=== PATIENT | male | born 1965 | race Caucasian/White ===

== ENCOUNTER 2022-04-11 09:41 | Emergency (ER) | payer BC, SELFPAY ==
[2022-04-11] VITALS (24 sets, daily range): BP systolic 135–178; BP diastolic 75–116; PULSE 68–92; RESP 18–20; TEMP 36.3–36.4; O2SAT 94–170; BMI 30.4
--- NOTE | 2022-04-11 10:21 | ED.GENADULT ---
HPI - General Adult General Chief complaint: Neuro Symptoms/Altered Deficit Stated complaint: Possible stroke Time Seen by Provider: 04/11/22 09:55 History of Present Illness HPI narrative: This 56-year-old male comes in reporting pain in his left hand and left foot. This started for 5 days ago but has intensified since then. This morning he had severe pain in these areas. He has a history of myelofibrosis and is taking hydroxyurea. This dosage was increased recently. He is following with a oncologist. He does not report any specific injury event. He was fishing this past weekend. He reports pain in the median nerve distribution of his left hand. He does not report any neck or back pain. He presented to clinic this morning with these symptoms and was sent here for further evaluation. The clinician thought there might have been a faint facial droop and stated to the patient that this may be a stroke. The patient does describe some brief episodes of vertigo over these past several days. These last just a few minutes but he does feel off balance at these times. Related Data Home Medications Medication Instructions Recorded Confirmed acetaminophen 500 mg tablet 1,500 mg PO Q6H PRN 04/11/22 04/11/22 (Tylenol Extra Strength) hydroxyurea 500 mg capsule 500 mg PO 04/11/22 04/11/22 Previous Rx's Medication Instructions Recorded apixaban 5 mg (74 tabs) tablets in See Rx Instructions PO .COMPLEX 04/11/22 a dose pack (Route4Me DVT-PE Treat #74 ea 30D Start) cyclobenzaprine 10 mg tablet 10 mg PO TID #15 tabs 04/11/22 ondansetron 4 mg disintegrating 4 mg PO Q6H #20 tabs 04/11/22 tablet oxycodone 5 mg capsule 5 mg PO Q4H PRN pain #30 caps 04/11/22 Allergies Allergy/AdvReac Type Severity Reaction Status Date / Time No Known Drug Allergies Allergy Verified 04/11/22 07:43 Review of Systems Status of ROS: Reports: 10 or more systems reviewed and unremarkable except as noted in History and below Narrative: Constitutional: No fevers, no weight gain or loss. Eyes: No discharge. No vision changes. HENT: No congestion, no sore throat, no ear pain. Cardiovascular: No chest pain, no palpitations. Respiratory: No shortness of breath, no wheezes, no cough. Gastrointestinal: No abdominal pain, no vomiting, no diarrhea. Genitourinary: No dysuria, no hematuria. Musculoskeletal: Normal range of motion. Left hand and left foot pain as described above. Skin: No rashes, no pruritis. Neurological: No weakness, sensory change, speech change. Brief episodes of vertigo lasting less than 5 minutes. Endo/Heme/Allergies: No bruising or bleeding. No polydipsia. Pysch: no suicidality, no anxiety, no insomnia. All other systems reviewed and are negative. [facility] Medical History (Updated 04/11/22 @ 14:47 by Yong Medeiros MD) Left hand pain Social History Smoking Status: Never smoker Do you use any of these nicotine containing products: None How often do you have a drink containing alcohol: monthly or less How many standard drinks containing alcohol do you have on a typical day: 1 or 2 How often do you have six or more drinks on one occasion: Never AUDIT-C Alcohol total score: 1 Non-prescribed substance use: denies use Exam Narrative: Exam Narrative: Constitutional: Well-developed, well-nourished, no acute distress. HEENT: Normocephalic, atraumatic. Neck: Normal range of motion. Nontender. Supple. Heart: Regular. No murmurs. Normal rate. Intact distal pulses. Lungs: Clear to auscultation. No chest discomfort. No wheezes, rhonchi, or rales. Abdomen: Normal bowel sounds. Nontender. No rebound tenderness. Genitalia: Deferred. Back: No midline tenderness. Normal range of motion. Extremities: Normal range of motion. No injury. Skin: Intact. No rash. No erythema or pallor. His left hand and left foot are warm to touch. The right hand and right foot are cool. There is no discoloration of his extremities. Neurologic: No altered sensation. No weakness. Alert and oriented. No facial asymmetry. Tongue is midline. [id number] is normal. No pronator drift. Heel to bassett is normal bilaterally. 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 Psychiatric: No suicidality. No anxiety or depression. No insomnia. Nursing notes and vitals signs are reviewed. Const: Vital Signs, click to edit/add: Vital Signs - 24 hr 04/11/22 09:46 04/11/22 09:45 04/11/22 10:00 Temperature 97.4 F L Pulse Rate Pulse Rate [Pulse Oximeter] 92 82 Respiratory Rate 18 20 20 Blood Pressure Blood Pressure [Ri ght Upper Arm] 170/116 H 170/116 H 178/110 H Pulse Oximetry 170 H 98 98 Oxygen Delivery Me thod Room Air Room Air 04/11/22 10:30 04/11/22 10:33 04/11/22 10:34 Temperature Pulse Rate 72 68 Pulse Rate [Pulse Oximeter] 75 Respiratory Rate 20 Blood Pressure 150/90 H Blood Pressure [Ri ght Upper Arm] 150/90 H Pulse Oximetry 98 99 99 Oxygen Delivery Me thod 04/11/22 11:00 04/11/22 11:02 04/11/22 11:30 Temperature Pulse Rate 77 68 68 Pulse Rate [Pulse Oximeter] Respiratory Rate Blood Pressure 147/94 H Blood Pressure [Ri ght Upper Arm] Pulse Oximetry 95 98 98 Oxygen Delivery Me thod 04/11/22 11:32 04/11/22 11:33 04/11/22 12:00 Temperature Pulse Rate 74 84 70 Pulse Rate [Pulse Oximeter] Respiratory Rate Blood Pressure 150/93 H Blood Pressure [Ri ght Upper Arm] Pulse Oximetry 97 99 98 Oxygen Delivery Me thod 04/11/22 12:02 04/11/22 13:16 04/11/22 13:32 Temperature Pulse Rate 70 Pulse Rate [Pulse Oximeter] Respiratory Rate Blood Pressure 147/89 H 135/75 136/83 Blood Pressure [Ri ght Upper Arm] Pulse Oximetry 99 Oxygen Delivery Me thod 04/11/22 14:02 04/11/22 14:06 04/11/22 15:29 Temperature 97.5 F L Pulse Rate 78 Pulse Rate [Pulse Oximeter] Respiratory Rate Blood Pressure 145/94 H Blood Pressure [Ri ght Upper Arm] Pulse Oximetry 98 Oxygen Delivery Me thod 04/11/22 14:30 04/11/22 14:32 04/11/22 15:00 Temperature Pulse Rate 81 74 84 Pulse Rate [Pulse Oximeter] Respiratory Rate Blood Pressure 146/86 H Blood Pressure [Ri ght Upper Arm] Pulse Oximetry 97 98 94 Oxygen Delivery Me thod 04/11/22 15:02 04/11/22 15:30 04/11/22 15:32 Temperature Pulse Rate 91 88 Pulse Rate [Pulse Oximeter] Respiratory Rate Blood Pressure 138/81 156/101 H Blood Pressure [Ri ght Upper Arm] Pulse Oximetry 94 97 96 Oxygen Delivery Me thod Course Vital Signs Vital signs: Initial Vital Signs Pulse Rhythm 04/11/22 09:45 Pulse Strength 3+ Normal 04/11/22 09:45 Respiratory Rate 20 04/11/22 09:45 Blood Pressure 170/116 H 04/11/22 09:45 Blood Pressure Mean 134 04/11/22 09:45 Pulse Oximetry 98 04/11/22 09:45 Oxygen Delivery Method 04/11/22 09:45 Vital Signs Respiratory Rate 20 04/11/22 09:45 Blood Pressure 170/116 H 04/11/22 09:45 Pulse Oximetry 98 04/11/22 09:45 Oxygen Delivery Method 04/11/22 09:45 Temperature 97.5 F L 04/11/22 15:29 Pulse Rate 88 04/11/22 15:32 Respiratory Rate 20 04/11/22 10:30 Blood Pressure 156/101 H 04/11/22 15:32 Pulse Oximetry 96 04/11/22 15:32 Oxygen Delivery Method 04/11/22 09:46 Medical Decision Making MDM Narrative Medical decision making narrative: This patient comes in reporting left hand and foot pain along with some brief episodes of vertigo. These symptoms began about 5 days ago. He has a myeloproliferative disorder and is taking hydroxyurea. I spoke with a oncologist on-call in this regard who recommended MRI of the brain to rule out TIA or cerebrovascular accident as he is more at risk for these to occur given his past medical history. An IV was established and labs returned with normal results essentially. His platelets are a bit elevated at 660. CT scan of the chest is negative for pulmonary embolism. An MRI of the brain does returned with some suspicion for punctate embolisms in the cerebellum. I spoke again with the patient's oncologist, Dr. Unger, who will see him in clinic. He did receive the 1st dose of Eliquis and a prescription for the starter pack. He received 3 different doses of Dilaudid 0.5 mg intravenously as he is having significant pain in his extremities on the left side. Prescriptions for oxycodone, Flexeril, and Zofran are provided. The patient is instructed to follow up soon with oncology clinic for further evaluation and treatment. Lab Data Labs: Lab Results 04/11/22 04/11/22 04/11/22 Range/Units 09:55 09:55 09:55 WBC 5.84 (4.50-11.00) K/uL RBC 4.88 (4.30-5.90) m/uL Hgb 15.9 (13.5-17.5) gm/dL Hct 46.9 (37.0-53.0) % MCV 96 (80-100) fL MCH 33 (26-34) pg MCHC 34 (32-36) gm/dL RDW Coeff of Libra 16.9 H (11.5-15.5) % Plt Count 622 H (140-440) K/uL Neut % (Auto) 62.8 (42.0-72.0) % Lymph % (Auto) 27.9 (20-44) % [place] % (Auto) 7.4 (0.0-11.0) % Eos % (Auto) 0.7 (0.0-7.0) % Baso % (Auto) 0.5 (0.0-3.0) % Neut # (Auto) 3.67 (1.7-7.0) K/uL Lymph # (Auto) 1.63 (0.90-2.90) K/uL [place] # (Auto) 0.40 (0.00-0.90) K/UL Eos # (Auto) 0.04 (0.00-0.50) K/uL Baso # (Auto) 0.03 (0.00-0.30) K/uL INR 0.99 (0.91-1.10) Sodium 138 (135-149) mmol/L Potassium 4.8 (3.6-5.1) mmol/L Chloride 106 (96-114) mmol/L Carbon Dioxide 25 (20-32) mmol/L BUN 15 (7-30) mg/dL Creatinine 1.0 (0.5-1.5) mg/dL Estimated Creat Clear 103.68 Estimated GFR 89 ml/min Glucose 102 (60-115) mg/dL Calcium 9.6 (8.4-10.6) mg/dL Total Bilirubin (0.1-1.5) mg/dL Direct Bilirubin (0.0-0.5) mg/dL AST (12-35) U/L ALT (4-50) U/L Alkaline Phosphatase (40-150) U/L C-Reactive Protein < 0.5 L (0.5-1.0) mg/dL Total Protein (6.0-8.3) g/dL Albumin (3.3-5.0) g/dL 04/11/22 Range/Units 09:55 WBC (4.50-11.00) K/uL RBC (4.30-5.90) m/uL Hgb (13.5-17.5) gm/dL Hct (37.0-53.0) % MCV (80-100) fL MCH (26-34) pg MCHC (32-36) gm/dL RDW Coeff of Libra (11.5-15.5) % Plt Count (140-440) K/uL Neut % (Auto) (42.0-72.0) % Lymph % (Auto) (20-44) % [place] % (Auto) (0.0-11.0) % Eos % (Auto) (0.0-7.0) % Baso % (Auto) (0.0-3.0) % Neut # (Auto) (1.7-7.0) K/uL Lymph # (Auto) (0.90-2.90) K/uL [place] # (Auto) (0.00-0.90) K/UL Eos # (Auto) (0.00-0.50) K/uL Baso # (Auto) (0.00-0.30) K/uL INR (0.91-1.10) Sodium (135-149) mmol/L Potassium (3.6-5.1) mmol/L Chloride (96-114) mmol/L Carbon Dioxide (20-32) mmol/L BUN (7-30) mg/dL Creatinine (0.5-1.5) mg/dL Estimated Creat Clear Estimated GFR ml/min Glucose (60-115) mg/dL Calcium (8.4-10.6) mg/dL Total Bilirubin 0.9 (0.1-1.5) mg/dL Direct Bilirubin 0.1 (0.0-0.5) mg/dL AST 39 H (12-35) U/L ALT 49 (4-50) U/L Alkaline Phosphatase 71 (40-150) U/L C-Reactive Protein (0.5-1.0) mg/dL Total Protein 7.6 (6.0-8.3) g/dL Albumin 5.0 (3.3-5.0) g/dL Imaging Data CT scan - chest: Radiologist's impression: No pulmonary embolism MRI - head: Radiologist's impression: 1. A few punctate acute infarcts are noted in the left cerebellar hemisphere, and there may be an additional single lesion in the left posterior temporal occipital cerebrum. No associated hemorrhage or mass effect at this time. 2. Examination otherwise unremarkable. Discharge Plan Discharge Clinical Impression: Myeloproliferative disorder, Acute CVA (cerebrovascular accident) Patient Disposition: Home w/ Parent or Adult Condition: Unchanged Additional Instructions: Take medication as prescribed. Follow up with Oncology Clinic. Call for appointment. Return if worsening. Prescriptions: New cyclobenzaprine 10 mg tablet 10 mg PO TID Qty: 15 0RF ondansetron 4 mg tablet,disintegrating 4 mg PO Q6H Qty: 20 0RF oxycodone 5 mg capsule 5 mg PO Q4H PRN (Reason: pain) Qty: 30 0RF Eliquis DVT-PE Treat 30D Start 5 mg (74 tabs) tablets,dose pack See Rx Instructions PO .COMPLEX Qty: 74 0RF Rx Instructions: orally per package directions No Action hydroxyurea 500 mg capsule 500 mg PO Label Comments: TAKE 3 CAPSULES BY MOUTH ALTERNATING DAYS WITH 2 CAPSULES. acetaminophen [Tylenol Extra Strength] 500 mg tablet 1,500 mg PO Q6H PRN Follow Up/Referrals: Provider,Not a Local [Primary Care Provider] - Stand Alone Forms: MyHealth Info Instructions Procedures Ultrasound Other exam #1: Anatomical areas examined: Cardiac Indications: Rule out thrombus Exam type: focused emergency ultrasound Description/findings: Normal exam Impression: No evidence of cardiac thrombus
[2022-04-11] MEDS: ONDANSETRON 2 MG/ML inj 4 MG IVP (10:30)
[2022-04-11] MEDS: HYDROmorphone 0.5 mg/0.5 ml inj IVP ×3 (10:30→14:55)
[2022-04-11 10:32] LABS: Basophils Absolute Auto 0.03 K/uL (0.00-0.30); Basophils Percent Auto 0.5 % (0.0-3.0); Eosinophils Absolute Auto 0.04 K/uL (0.00-0.50); Eosinophils Percent Auto 0.7 % (0.0-7.0); Hematocrit 46.9 % (37.0-53.0); Hemoglobin* 15.9 gm/dL (13.5-17.5); Immature Granulocytes Abs Auto 0.04 K/uL (0.00-0.30); Immature Granulocytes Pct Auto 0.7 %; Lymphocytes Absolute Auto 1.63 K/uL (0.90-2.90); Lymphocytes Percent Auto 27.9 % (20-44); Mean Corpuscular HGB Conc 34 gm/dL (32-36); Mean Corpuscular Hemoglobin 33 pg (26-34); Mean Corpuscular Volume 96 fL (80-100); Monocytes Percent Auto 7.4 % (0.0-11.0); Neutrophils Absolute Auto 3.67 K/uL (1.7-7.0); Neutrophils Percent Auto 62.8 % (42.0-72.0); Platelet Count* 622 K/uL (140-440); RDW Coefficient of Variation % 16.9 % (11.5-15.5); Red Blood Count 4.88 m/uL (4.30-5.90); White Blood Count* 5.84 K/uL (4.50-11.00)
[2022-04-11 10:43] LABS: Chloride* 106 mmol/L (96-114); Potassium* 4.8 mmol/L (3.6-5.1); Sodium* 138 mmol/L (135-149)
[2022-04-11 10:46] LABS: Est. Creatinine Clearance* 103.68; Estimated Glomerular Filt Rate 89 ml/min; INR 0.99 (0.91-1.10); Prothrombin Time 13.7 Seconds
[2022-04-11 10:47] LABS: Aspartate Amino Transferase* 39 U/L (12-35); Bilirubin Direct* 0.1 mg/dL (0.0-0.5); Bilirubin Total* 0.9 mg/dL (0.1-1.5); Blood Urea Nitrogen* 15 mg/dL (7-30); Calcium* 9.6 mg/dL (8.4-10.6); Carbon Dioxide* 25 mmol/L (20-32); Glucose* 102 mg/dL (60-115); Total Protein* 7.6 g/dL (6.0-8.3)
[2022-04-11 10:48] LABS: Alanine Aminotransferase* 49 U/L (4-50); Alkaline Phosphatase* 71 U/L (40-150)
[2022-04-11 10:56] LABS: C Reactive Protein* < 0.5 mg/dL (0.5-1.0)
[2022-04-11 11:11] LABS: Slide Review Reflex No
--- NOTE | 2022-04-11 11:33 | CRLHL7_ITS ---
For Patients: As a result of the Century Cures Act, medical imaging exams and procedure reports are released immediately into your electronic medical record. You may view this report before your referring provider. If you have questions, please contact your health care provider. Indication: Left hand and foot dysesthesias. A few punctate foci of diffusion restriction are seen in the a left cerebellar hemisphere, and there is a possible single similar focus in the subcortical white matter of the left posterior temporal occipital region (Diffusion series 5, image 35). These are suspicious for acute infarcts. Technique: T1 sagittal as well as diffusion, FLAIR and T2 axial images were obtained. No IV contrast. Comparison: None are available. Findings: A few punctate foci of diffusion restriction are seen in the a left cerebellar hemisphere, and there is a possible single similar focus in the subcortical white matter of the left posterior temporal occipital region (Diffusion series 5, image 35). These are suspicious for acute infarcts. No mass effect. No evidence for recent or remote hemorrhage. No chronic infarcts are identified. No ventricular obstruction. No additional brain parenchymal signal abnormalities are identified. Grossly normal flow voids are maintained in the intracranial vascular structures. The craniovertebral junction is unremarkable, with a patent foramen magnum. Both temporal bones are well aerated. There is slight membrane thickening in the ethmoid paranasal sinuses. I called Dr. Medeiros and discussed these findings on 04/11/2022 at 1415 hours. Impression: 1. A few punctate acute infarcts are noted in the left cerebellar hemisphere, and there may be an additional single lesion in the left posterior temporal occipital cerebrum. No associated hemorrhage or mass effect at this time. 2. Examination otherwise unremarkable. Dictated by Pramod Mcrae MD @ 04/11/2022 2:20:54 PM (Electronically Signed)
--- NOTE | 2022-04-11 11:34 | CRLHL7_ITS ---
For Patients: As a result of the Century Cures Act, medical imaging exams and procedure reports are released immediately into your electronic medical record. You may view this report before your referring provider. If you have questions, please contact your health care provider. INDICATION: Chest pain. TECHNIQUE: CT chest PE was acquired with 95 cc Isovue 370 IV contrast. COMPARISON: December 29, 2019. FINDINGS: Heart and vasculature: Contrast opacification of the pulmonary arterial tree is adequate. No sign of pulmonary embolism. Heart size is normal. Thoracic aorta and pulmonary artery are normal in caliber. Lungs and pleura: No suspicious nodules or infiltrates. Bibasilar atelectasis. Few scattered calcified granulomas. Few additional tiny sub 3 millimeter pulmonary nodules. No pleural effusions, pleural thickening, or pneumothorax. Lymph nodes/mediastinum: No mediastinal, hilar, or axillary adenopathy. Chest wall: No masses. Upper abdomen: No acute or significant findings. Bones: Unremarkable for age. IMPRESSION: No pulmonary embolism, as questioned. Please note that all CT scans at this facility use dose modulation, iterative reconstruction, and/or weight-based dosing when appropriate to reduce radiation dose to as low as reasonably achievable. Dictated by Grayson Gross MD @ 04/11/2022 1:09:04 PM (Electronically Signed)
--- NOTE | 2022-04-11 12:11 | ED.NURSE ---
Pt went down to imaging
[2022-04-11] MEDS: APIXABAN 5 MG TABLET 10 MG PO (15:27)
--- NOTE | 2022-04-11 16:12 | ED.NURSE ---
nesha called, eliquis starter pack is not available at [facility] and [facility]. Wants to know if RX could be be sent separably, able to take a verbal ok to split. Per Dr Medeiros, ok to send meds separately outside of the start pack.
== END 2022-04-11 15:37 | disposition home or self-care (01) ==
PROVIDERS: Emergency Provider Emergency Medicine Emergency Medical Services
DX: I63.9 Cerebral infarction, unspecified (principal); D47.1 Chronic myeloproliferative disease
CPT/HCPCS: 36415; 70551; 71260; 76604; 76705; 80048; 80076; 84550; 85025; 85610; 86140; 93308; 96374; 96375; 96376; 99285; A9270; J1170; J2405; Q9967

== ENCOUNTER 2022-06-28 08:18 | Outpatient (CLI) | payer BC, SELFPAY | END 2022-06-28 08:19 | disposition home or self-care (01) | PROVIDERS: PCP Physician Assistant Medical; Visit Provider Physician Assistant Medical | DX: I10 Essential (primary) hypertension (principal); E78.00 Pure hypercholesterolemia, unspecified; Z86.73 Personal history of transient ischemic attack (TIA), and cerebral infarction without residual deficits | CPT/HCPCS: 80061; 80076 ==

== ENCOUNTER 2022-10-15 07:56 | Outpatient (CLI) | payer BC, SELFPAY | END 2022-10-15 07:57 | disposition home or self-care (01) | LOC: NFLDREF 10-16 09:23 | PROVIDERS: PCP Physician Assistant Medical; Referring Provider Physician Assistant Medical; Visit Provider Physician Assistant Medical | DX: E78.00 Pure hypercholesterolemia, unspecified (principal); Z86.73 Personal history of transient ischemic attack (TIA), and cerebral infarction without residual deficits | CPT/HCPCS: 80061; 80076 ==

== ENCOUNTER 2023-08-07 14:19 | Outpatient (CLI) | payer BC, SELFPAY ==
--- NOTE | 2023-08-07 14:00 | US_ITS ---
Patient: GENESIS HUMPHREYS Facility:?[facility] Patient ID:?[id number] Site Patient ID:?[id number]. Site :?[id number] Study:?US-Extremity Left LEV-08/07/2023 3:02:32 PM Ordering Physician:Vinay Hogan Final Report: INDICATION: Left lateral calf pain. History of myeloproliferative disorder. TECHNIQUE: Left lower extremity Doppler venous ultrasound examination was performed. Grayscale and color Doppler images were obtained. COMPARISON: None. FINDINGS: RIGHT LOWER EXTREMITY: Common femoral vein: Fully compressible. No deep vein thrombus. Normal flow and response to augmentation on color Doppler imaging. LEFT LOWER EXTREMITY: Common femoral vein: Fully compressible. No deep vein thrombus. Normal flow and response to augmentation on color Doppler imaging. Superficial femoral vein: Fully compressible. No deep vein thrombus. Normal flow on color Doppler imaging. Deep femoral vein: No deep vein thrombus Popliteal femoral vein: Fully compressible. No deep vein thrombus. Normal flow on color Doppler imaging. Lower calf: The visualized posterior tibial and peroneal veins are fully compressible. No deep vein thrombus. Normal flow and response to augmentation on color Doppler imaging. Superficial veins: The superficial veins, including the greater saphenous vein, remain patent and are fully compressible. Soft tissues: No popliteal fossa fluid collection identified. IMPRESSION: No deep vein thrombus. Unremarkable doppler ultrasound examination of the left lower extremity. Dictated by Victoriano Tejada MD @ 08/07/2023 3:11:53 PM Signed by:?Victoriano Tejada MD @08/07/2023 3:11:53 PM (Electronic Signature)
== END 2023-08-07 14:20 | disposition home or self-care (01) ==
LOC: US 14:22
PROVIDERS: PCP Physician Assistant Medical; Visit Provider Internal Medicine Hematology & Oncology
DX: D47.1 Chronic myeloproliferative disease (principal); D47.3 Essential (hemorrhagic) thrombocythemia; I63.9 Cerebral infarction, unspecified; M85.80 Other specified disorders of bone density and structure, unspecified site; Z80.0 Family history of malignant neoplasm of digestive organs
CPT/HCPCS: 93971

== ENCOUNTER 2024-01-20 08:13 | Outpatient (CLI) | payer BC, SELFPAY ==
--- OUTSIDE RECORDS SUMMARY | 2024-01-20 08:16 | XMS_ITS | Clinical Summary ---
Author Organization [employer] [facility] Address [place], [place] [address] Care Team Providers Care Horse Identifier Name Role Phone Francisco Zarate MD Primary Care Provider [phone] Allergies No known active allergies Medications Medication Sig Dispensed Refills Start Date End Date Status HYDROcodone-acetam inophen, 5-500 mg, (VICODIN) Tab tablet Take 1-2 tablets by mouth every 6 hours if needed for Pain. Max acetaminophen dose: 4000mg in 24 hrs. 12 tablet 0 10/27/2010 Active Social History Tobacco Use Types Packs/Day Years Used Date Smoking Tobacco: Never Alcohol Use Standard Drinks/Week Comments Yes 0.8 (1 standard drink = 0.6 oz p ure alcohol) Sex and Gender Information Value Date Recorded Sex Assigned at Not on file Gender Identity Not on file Sexual Orientation Not on file Obstetrics History Last Filed Vital Signs Vital Sign Reading Time Taken Comments Blood Pressure 135/65 10/27/2010 12:00 PM CDT Pulse 78 10/27/2010 12:00 PM CDT Temperature 37.3 ??C (99.2 ??F) 10/27/2010 12:00 PM C DT Respiratory Rate 16 10/27/2010 12:00 PM CDT Oxygen Saturation 97% 10/27/2010 12:00 PM CDT Inhaled Oxygen Concentration - - Weight 113.4 kg (250 lb) 10/27/2010 11:04 AM CDT Height 193 cm (6' 4) 10/27/2010 11:04 AM CDT Body Mass Index 30.43 10/27/2010 11:04 AM CDT Plan of Treatment Health Maintenance Due Date Last Done Comments Tdap 08/09/1978 Depression screening for age 12+ 1979 HIV for age 15-65 08/09/1982 BMI (ht and wt on same day) for age 18+ 08/09/1985 Hepatitis C screening for ag e 18-79 08/09/1985 Tetanus booster 1987 Colonoscopy through age 75 08/09/2012 Lipids for age 45-75 08/09/2012 Zoster (shingles) series for age 50+ (1 of 2) 08/09/2017 COVID-19 vaccine series (2023- season) 2023 Influenza for age 50-64 12/22/2023 Pneumococcal series for age 6-64 Aged Out No longer eligible based on patient's age to complete this topic Care Teams Horse Identifier Relationship Specialty Start Date End Date Francisco Zarate MD PCP - General Family Practice 10/27/10
--- OUTSIDE RECORDS SUMMARY | 2024-01-20 08:16 | XMS_ITS | Clinical Summary ---
Author Organization [employer] Address [address] [place] [address] Care Team Providers Care Data Entry Machine Operator Name Role Phone Srikanth Faust Primary Care Provider + [phone] David Lima MD Unavailable [phone] Allergies No known active allergies Medications Medication Sig Dispensed Refills Start Date End Date Status hydroxyurea (HYDREA) 500 MG capsule Take 1,500 mg by mouth daily 10/02/2020 Active cyclobenzaprine (FLEXERIL) 10 MG tablet Take 10 mg by mouth every 6 hours as needed for muscle spasms Active ondansetron (ZOFRAN ODT) 4 MG ODT tab Take 4 mg by mouth every 6 hours as needed for nausea Active oxyCODONE (ROXICODONE) 5 MG tablet Take 5 mg by mouth every 4 hours as needed for severe pain (7-10) or moderate pain (4-6) Active acetaminophen (TYLENOL) 500 MG tablet Take 1,000 mg by mouth every 6 hours as needed for mild pain Active aspirin (ASA) 325 MG EC tabletIndications:Cer ebrovascular accident (CVA), unspecified mechanism (H) Take 1 tablet (325 mg) by mouth daily 90 tablet 04/14/2022 Active atorvastatin (LIPITOR) 40 MG tabletIndications:Cer ebrovascular accident (CVA), unspecified mechanism (H) Take 1 tablet (40 mg) by mouth daily 90 tablet 04/15/2022 Active clopidogrel (PLAVIX) 75 MG tabletIndications:Cer ebrovascular accident (CVA), unspecified mechanism (H) Take 1 tablet (75 mg) by mouth daily for 90 days 90 tablet 04/15/2022 Active predniSONE (DELTASONE) 20 MG tablet Take two tablets (= 40mg) each day for 5 (five) days 10 tablet 08/08/2023 Active Active Problems Problem Noted Date Diagnosed Date Vision changes 04/12/2022 Cerebrovascular accident (CVA), unspecified mech anism 04/12/2022 Chest pain, unspecified type 04/12/2022 Dizziness 10/21/2020 Nonsustained ventricular tachycardia 10/21/2020 Atrial fibrillation with RVR 10/21/2020 Family History Medical History Relation Comments Lymphoma Maternal Grandmother Rheumatoid Arthritis Maternal Grandmother Thyroid Cancer Maternal Grandmother Uterine Cancer Maternal Grandmother Rheumatoid Arthritis Paternal Uncle Stomach Cancer Sister Relation Status Comments Maternal Grandmother Paternal Uncle Other Sister Social History Tobacco Use Types Packs/Day Years Used Date Smoking Tobacco: Never Smokeless Tobacco: Never Tobacco Cessation:Counseling Given: Not Answered Alcohol Use Standard Drinks/Week Comments Yes 0 (1 standard drink = 0.6 oz pur e alcohol) 6 beer per week Adolescent Education Answer Date Record ed Getting School Help Needed Not on file 01/26 Sex and Gender Information Value Date Recorded Sex Assigned at Not on file Gender Identity Not on file Sexual Orientation Not on file Last Filed Vital Signs Vital Sign Reading Time Taken Comments Blood Pressure 156/110 08/08/2023 1:45 AM CDT Pulse 74 08/08/2023 1:45 AM CDT Temperature 36.4 ??C (97.6 ??F) 08/07/2023 6:52 PM CD T Respiratory Rate 18 08/07/2023 6:52 PM CDT Oxygen Saturation 95% 08/08/2023 1:45 AM CDT Inhaled Oxygen Concentration - - Weight 117.9 kg (260 lb) 08/07/2023 6:52 PM CDT Height 193 cm (6' 4) 08/07/2023 6:52 PM CDT Body Mass Index 31.65 08/07/2023 6:52 PM CDT Plan of Treatment Upcoming Encounters Date Type Department Care Team (Late st Contact Info) Description 04/03/2024 9:00 AM BRAZER ELECTRONIC Office Visit [facility] [address] [address] Kim Hernandez MD [address] [facility] [address] [place] [address] Health Maintenance Due Date Last Done Comments ADVANCE CARE PLANNING 1967 ANNUAL REVIEW OF HM ORDERS 1967 CT COLONOGRAPHY 1967 FIT 1967 FLEX SIG 1967 YEARLY PREVENTIVE VISIT 1967 sDNA (Cologuard) 1967 Pneumococcal Vaccine: Pediatrics (0 to 5 Years) and At-Risk Patients (6 to 64 Years) (1 of 2 - PCV) 08/09/1973 COLONOSCOPY 08/09/1977 COLORECTAL CANCER SCREENING 08/09/1977 HIV SCREENING 08/09/1982 HEPATITIS C SCREENING 08/09/1985 HEPATITIS B IMMUNIZATION (1 of 3 - 19+ 3-dose series) 08/09/1986 ZOSTER IMMUNIZATION (1 of 2) 08/09/1986 LIPID 04/12/2023 04/12/2022 PHQ-2 (once per calendar year) 2023 COVID-19 Vaccine ( season) 2023 05/15/2021, 07/30/2020, 07/09/2020 INFLUENZA VACCINE (#1) 2023 , 03/02/2020, 02/22/2020, Additional history exists GLUCOSE 08/06/2026 08/07/2023, 03/23, 04/13/2022, Additional history exists DTAP/TDAP/TD IMMUNIZATION (2 - Td or Tdap) 03/24/2029 03/24/2019 HPV IMMUNIZATION Aged Out No longer e ligible based on patient's age to complete this topic MENINGITIS IMMUNIZATION Aged Out No l onger eligible based on patient's age to complete this topic RSV MONOCLONAL ANTIBODY Aged Out No l onger eligible based on patient's age to complete this topic Procedures Procedure Name Priority Date/Time Associated Diagnosis Comments BASIC METABOLIC PANEL STAT 08/07/2023 10:48 PM CDT LIPID PROFILE STAT Add-on 04/12/2022 1:43 PM BRAZER ELECTRONIC from Last 3 Months or Most Recently Relevant to Health Maintenance Results * Basic metabolic panel (08/07/2023 10:48 PM CDT) Sodium 138 135 - 145 mmol/L 08/07/2023 11:17 PM CDT LABORATORY Comment:Reference intervals for this test were updated on 01/15/2023 to more accurately reflect our healthy population. There may be differences in the flagging of prior results with similar values performed with this method. Interpretation of those prior results can be made in the context of the updated reference intervals. Potassium 4.5 3.4 - 5.3 mmol/L 08/07/2023 11:17 PM CDT LABORATORY Chloride 103 98 - 107 mmol/L 08/07/2023 11:17 PM CDT LABORATORY Carbon Dioxide (CO2) 24 22 - 29 mmol/L 08/07/2023 11:17 PM CDT LABORATORY Anion Gap 11 7 - 15 mmol/L 08/07/2023 11:17 PM CDT LABORATORY Urea Nitrogen 13.8 6.0 - 20.0 mg/dL 08/07/2023 11:17 PM CDT LABORATORY Creatinine 1.00 0.67 - 1.17 mg/dL 08/07/2023 11:17 PM CDT LABORATORY GFR Estimate 89 >60 mL/min/1. 73m2 08/07/2023 11:17 PM CDT LABORATORY Calcium 9.1 8.6 - 10.0 mg/dL 08/07/2023 11:17 PM CDT LABORATORY Glucose 91 70 - 99 mg/dL 08/07/2023 11:17 PM CDT LABORATORY Blood BLOOD SPECIMEN / Unknown Venipuncture / Unknown 08/07/2023 10:48 PM CDT 08/07/2023 10:51 PM CDT Karena Douglas MD LAB - BLOOD ORD ERABLES LABORATORY [facility] [address] 1[address] floor, [address] [place] [address] * (ABNORMAL) Lipid panel reflex to direct LDL: Non-fasting (04/12/2022 1:43 PM BRAZER ELECTRONIC) Cholesterol 245(H) <200 mg/dL 04/12/2022 6:27 PM BRAZER ELECTRONIC LABORATORY Triglycerides 187(H) <150 mg/dL 04/12/2022 6:27 PM BRAZER ELECTRONIC LABORATORY Direct Measure HDL 48 >=40 mg/dL 04/12/2022 6:27 PM BRAZER ELECTRONIC LABORATORY LDL Cholesterol Calculated 160(H) <=100 mg/dL 04/12/2022 6:27 PM BRAZER ELECTRONIC LABORATORY Non HDL Cholesterol 197(H) <130 mg/dL 04/12/2022 6:27 PM BRAZER ELECTRONIC LABORATORY Blood STRUCTURE OF RIGHT UPPER LIMB / Unknown Venipuncture / Unknown 04/12/2022 1:43 PM BRAZER ELECTRONIC 04/12/2022 1:54 PM BRAZER ELECTRONIC Narrative LABORATORY - 04/12/2022 6:27 PM BRAZER ELECTRONIC Cholesterol Desirable: ??<200 mg/dL Triglycerides Normal: ??Less than 150 mg/dL Borderline High: ??150-199 mg/dL High: ??200-499 mg/dL Very High: ??Greater than or equal to 500 mg/dL Direct Measure HDL Female: ??Greater than or equal to 50 mg/dL Male: ??Greater than or equal to 40 mg/dL LDL Cholesterol Desirable: ??<100mg/dL Above Desirable: ??100-129 mg/dL Borderline High: ??130-159 mg/dL High: ??160-189 mg/dL Very High: ??>= 190 mg/dL Non HDL Cholesterol Desirable: ??130 mg/dL Above Desirable: ??130-159 mg/dL Borderline High: ??160-189 mg/dL High: ??190-219 mg/dL Very High: ??Greater than or equal to 220 mg/dL Jimmy Gonzalez MD LAB - BLOOD ORDERABL ES LABORATORY [facility] Lab [address] floor, [address] [place] [address], [place] [phone] from Last 3 Months or Most Recently Relevant to Health Maintenance Advance Directives For more information, please contact: [phone] * Full Code (Latest Code Status on File) Date Activated Date Inactivated Comments 04/12/2022 5:55 PM 04/14/2022 2:19 PM All basic and advanced life-sustaining interventions are performed as appropriate Question Answer Comments Code status determined by: Discussion with patie nt/ legal decision maker * Full Code Date Activated Date Inactivated Comments 10/22/2020 10:32 AM 04/12/2022 1:06 PM Question Answer Comments Code status determined by: Discussion with patie nt/ legal decision maker * Full Code Date Activated Date Inactivated Comments 10/21/2020 2:16 PM 10/22/2020 10:32 AM All basic and advanced life-sustaining interventions are performed as appropriate Question Answer Comments Code status determined by: Discussion with patie nt/ legal decision maker Care Teams Data Entry Machine Operator Relationship Specialty Start Date End Date Srikanth Faust [address] [address] PCP - General Family Medicine 10/21/20 David Lima MD [address] [place] [address] Neurology 04/16/22
--- OUTSIDE RECORDS SUMMARY | 2024-01-20 08:16 | XMS_ITS | Referral Summary ---
Author Organization [employer] Address [address] [place] [address] Care Team Providers Care Metal Sorter Name Role Phone Srikanth Faust Primary Care Provider + [phone] David Lima MD Unavailable [phone] Allergies No known active allergies Medications Medication [...] tachycardia 10/21/2020 Atrial fibrillation with RVR 10/21/2020 Social History Tobacco Use Types Packs/Day Years [...] st Contact Info) Description 04/03/2024 9:00 AM PATROL DEPUTY SHERIFF Office Visit [facility] Clinic [place] [id number] [facility] 3rd [place] [address] Kim Hernandez MD [address] [facility]. [address] [place] [address] Procedures Procedure Name Priority Date/Time Associated Diagnosis Comments BASIC METABOLIC PANEL STAT 08/07/2023 10:48 PM CDT LIPID PROFILE STAT Add-on 04/12/2022 1:43 PM PATROL DEPUTY SHERIFF from Last 3 Months or Most Recently [...] MD LAB - BLOOD ORD ERABLES LABORATORY [facility] Acute Care Lab [address], [address] [place] [address], [facility] * (ABNORMAL) Lipid panel reflex to direct LDL: Non-fasting (04/12/2022 1:43 PM PATROL DEPUTY SHERIFF) Cholesterol 245(H) <200 mg/dL 04/12/2022 6:27 PM PATROL DEPUTY SHERIFF LABORATORY Triglycerides 187(H) <150 mg/dL 04/12/2022 6:27 PM PATROL DEPUTY SHERIFF LABORATORY Direct Measure HDL 48 >=40 mg/dL 04/12/2022 6:27 PM PATROL DEPUTY SHERIFF LABORATORY LDL Cholesterol Calculated 160(H) <=100 mg/dL 04/12/2022 6:27 PM PATROL DEPUTY SHERIFF LABORATORY Non HDL Cholesterol 197(H) <130 mg/dL 04/12/2022 6:27 PM PATROL DEPUTY SHERIFF LABORATORY Blood STRUCTURE OF RIGHT UPPER LIMB / Unknown Venipuncture / Unknown 04/12/2022 1:43 PM PATROL DEPUTY SHERIFF 04/12/2022 1:54 PM PATROL DEPUTY SHERIFF Narrative LABORATORY - 04/12/2022 6:27 PM PATROL DEPUTY SHERIFF Cholesterol Desirable: ??<200 mg/dL Triglycerides Normal: ??Less [...] MD LAB - BLOOD ORDERABL ES LABORATORY [facility] Lab [address] 1[address], [address] [place] [address], [facility] [phone] from Last 3 Months or Most Recently Relevant to Health Maintenance Advance Directives For more information, please contact: [phone] * Full Code (Latest Code Status on [...] patie nt/ legal decision maker Care Teams Metal Sorter Relationship Specialty Start Date End Date Srikanth Faust [address] [address] PCP - General Family Medicine 10/21/20 David Lima MD [address] [place] [address] Neurology 04/16/22
--- OUTSIDE RECORDS SUMMARY | 2024-01-20 08:16 | XMS_ITS | Encounter Summary ---
Author Organization [employer] Address [address] [place] [address] Care Team Providers Care Solutions Architect Consultant Name Role Phone Srikanth Faust Primary Care Provider + [phone] David Lima MD Unavailable [phone] Encounter Details Date Type Department Care Team ([facility] Contact Info) Description 08/19/[address] [facility] Care Coordination [address] [place] [address] Jayda Segal, RN Social History Tobacco Use Types Packs/Day Years Used Date Smoking Tobacco: Never Smokeless Tobacco: Never Alcohol Use Standard Drinks/Week Comments Yes 0 (1 standard drink = 0.6 oz pur e alcohol) 6 beer per week Adolescent Education Answer Date Record ed Getting School Help Needed Not on file 01/26 Sex and Gender Information Value Date Recorded Sex Assigned at Not on file Gender Identity Not on file Sexual Orientation Not on file documented as of this encounter Plan of Treatment Upcoming Encounters Date Type Department Care Team (Late st Contact Info) Description 04/03/2024 9:00 AM RECEPTION MANAGER Office Visit [facility] [place] [address] [facility] 3rd [place] [address] Kim Hernandez MD [address] [facility] [address] [place], [place] [id number] documented as of this encounter Visit Diagnoses Not on filedocumented in this encounter Care Teams Solutions Architect Consultant Relationship Specialty Start Date End Date Srikanth Faust [address] [address] PCP - General Family Medicine 10/21/20 David Lima MD [address] [place], [place] [address] Neurology 04/16/22 documented as of this encounter
== END 2024-01-20 08:14 | disposition home or self-care (01) ==
PROVIDERS: PCP Physician Assistant Medical; Visit Provider Physician Assistant Medical
DX: R79.89 Other specified abnormal findings of blood chemistry (principal); I10 Essential (primary) hypertension; E78.00 Pure hypercholesterolemia, unspecified; Z11.59 Encounter for screening for other viral diseases; Z11.4 Encounter for screening for human immunodeficiency virus [HIV]; Z12.5 Encounter for screening for malignant neoplasm of prostate
CPT/HCPCS: 80053; 80061; 82977; 86703; 86706; 86803; 87340; G0103

== ENCOUNTER 2024-01-24 07:01 | Outpatient (CLI) | payer BC, SELFPAY ==
--- OUTSIDE RECORDS SUMMARY | 2024-01-24 07:04 | XMS_ITS | Referral Summary ---
Author Organization [place] Address [address] [place] [address] Care Team Providers Care Dx Board Operator Name Role Phone Srikanth Faust Primary Care Provider + [phone] David Lima MD Unavailable [phone] Allergies No known active allergies Medications Medication [...] st Contact Info) Description 04/03/2024 9:00 AM INBOUND INGREDIENT LOGISTICS SPECIALIST Office Visit [facility] Clinic [place] [address] [facility] 3rd [place] [address] Kim Hernandez MD [address] [facility]. [address] [place] [address] Procedures Procedure Name Priority Date/Time Associated Diagnosis Comments BASIC METABOLIC PANEL STAT 08/07/2023 10:48 PM CDT LIPID PROFILE STAT Add-on 04/12/2022 1:43 PM INBOUND INGREDIENT LOGISTICS SPECIALIST from Last 3 Months or Most Recently [...] LAB - BLOOD ORD ERABLES LABORATORY [facility] Acute Care Lab [address] 1[address], [address] [place] [address], [facility] * (ABNORMAL) Lipid panel reflex to direct LDL: Non-fasting (04/12/2022 1:43 PM INBOUND INGREDIENT LOGISTICS SPECIALIST) Cholesterol 245(H) <200 mg/dL 04/12/2022 6:27 PM INBOUND INGREDIENT LOGISTICS SPECIALIST LABORATORY Triglycerides 187(H) <150 mg/dL 04/12/2022 6:27 PM INBOUND INGREDIENT LOGISTICS SPECIALIST LABORATORY Direct Measure HDL 48 >=40 mg/dL 04/12/2022 6:27 PM INBOUND INGREDIENT LOGISTICS SPECIALIST LABORATORY LDL Cholesterol Calculated 160(H) <=100 mg/dL 04/12/2022 6:27 PM INBOUND INGREDIENT LOGISTICS SPECIALIST LABORATORY Non HDL Cholesterol 197(H) <130 mg/dL 04/12/2022 6:27 PM INBOUND INGREDIENT LOGISTICS SPECIALIST LABORATORY Blood STRUCTURE OF RIGHT UPPER LIMB / Unknown Venipuncture / Unknown 04/12/2022 1:43 PM INBOUND INGREDIENT LOGISTICS SPECIALIST 04/12/2022 1:54 PM INBOUND INGREDIENT LOGISTICS SPECIALIST Narrative LABORATORY - 04/12/2022 6:27 PM INBOUND INGREDIENT LOGISTICS SPECIALIST Cholesterol Desirable: ??<200 mg/dL Triglycerides Normal: ??Less [...] LAB - BLOOD ORDERABL ES LABORATORY [facility] Lab [address] 1[address], [address] [place] [address], [facility] [phone] from Last 3 Months or Most Recently Relevant to Health Maintenance Advance Directives For more information, please contact: [phone] * Full Code (Latest Code Status on [...] patie nt/ legal decision maker Care Teams Dx Board Operator Relationship Specialty Start Date End Date Srikanth Faust [address] [address] PCP - General Family Medicine 10/21/20 David Lima MD [address] [place] [address] Neurology 04/16/22
--- OUTSIDE RECORDS SUMMARY | 2024-01-24 07:04 | XMS_ITS | Clinical Summary ---
Author Organization [place] Address [address] [place] [address] Care Team Providers Care Instructor Hairspring Name Role Phone Srikanth Faust Primary Care Provider + [phone] David Lima MD Unavailable [phone] Allergies No known active allergies Medications Medication [...] st Contact Info) Description 04/03/2024 9:00 AM TALENT ENGINEER Office Visit [facility] V[facility] Clinic [address] [address] Kim Hernandez MD [address] [facility] [address] [place] [address] Health Maintenance Due Date Last Done Comments [...] LIPID PROFILE STAT Add-on 04/12/2022 1:43 PM TALENT ENGINEER from Last 3 Months or Most Recently [...] MD LAB - BLOOD ORD ERABLES LABORATORY [facility] Acute Care Lab [address], [address] [place] [address] * (ABNORMAL) Lipid panel reflex to direct LDL: Non-fasting (04/12/2022 1:43 PM TALENT ENGINEER) Cholesterol 245(H) <200 mg/dL 04/12/2022 6:27 PM TALENT ENGINEER LABORATORY Triglycerides 187(H) <150 mg/dL 04/12/2022 6:27 PM TALENT ENGINEER LABORATORY Direct Measure HDL 48 >=40 mg/dL 04/12/2022 6:27 PM TALENT ENGINEER LABORATORY LDL Cholesterol Calculated 160(H) <=100 mg/dL 04/12/2022 6:27 PM TALENT ENGINEER LABORATORY Non HDL Cholesterol 197(H) <130 mg/dL 04/12/2022 6:27 PM TALENT ENGINEER LABORATORY Blood STRUCTURE OF RIGHT UPPER LIMB / Unknown Venipuncture / Unknown 04/12/2022 1:43 PM TALENT ENGINEER 04/12/2022 1:54 PM TALENT ENGINEER Narrative LABORATORY - 04/12/2022 6:27 PM TALENT ENGINEER Cholesterol Desirable: ??<200 mg/dL Triglycerides Normal: ??Less [...] MD LAB - BLOOD ORDERABL ES LABORATORY [facility] Acute Care Lab [address] floor, [address] [place] [address], [place] [phone] from Last 3 Months or Most Recently Relevant to Health Maintenance Advance Directives For more information, please contact: [phone] * Full Code (Latest Code Status on [...] patie nt/ legal decision maker Care Teams Instructor Hairspring Relationship Specialty Start Date End Date Srikanth Faust [address] [address] PCP - General Family Medicine 10/21/20 David Lima MD [address] [place] [address] Neurology 04/16/22
--- OUTSIDE RECORDS SUMMARY | 2024-01-24 07:04 | XMS_ITS | Encounter Summary ---
Author Organization [facility] Address [address] [place] [address] Care Team Providers Care Service Consultant Name Role Phone Srikanth Faust Primary Care Provider + [phone] David Lima MD Unavailable [phone] Encounter Details Date Type Department Care Team ([facility] Contact Info) Description 08/19/2023 MyC Medical Advice [facility] Care Coordination [address] [place] [address] Jayda Segal, RN Social History Tobacco [...] st Contact Info) Description 04/03/2024 9:00 AM MERCHANDISING TEAM LEAD Office Visit [facility] Clinic [place] [address] [facility] 3rd [place] [address] Kim Hernandez MD [address] [facility] [address] [place], [place] [id number] documented as of this encounter Visit Diagnoses Not on filedocumented in this encounter Care Teams Service Consultant Relationship Specialty Start Date End Date Srikanth Faust [address] [address] PCP - General Family Medicine 10/21/20 David Lima MD [address] [place], [place] [address] Neurology 04/16/22 documented as of this encounter
--- OUTSIDE RECORDS SUMMARY | 2024-01-24 07:04 | XMS_ITS | Clinical Summary ---
Author Organization [facility] Address [place], [place] [address] Care Team Providers Care Brake Repairer Name Role Phone Francisco Zarate MD Primary Care Provider [phone] Allergies No known active allergies Medications Medication [...] age to complete this topic Care Teams Brake Repairer Relationship Specialty Start Date End Date Francisco Zarate MD PCP - General Family Practice 10/27/10
--- NOTE | 2024-01-24 07:15 | CRLHL7_ITS ---
For Patients: As a result of the Century Cures Act, medical imaging exams and procedure reports are released immediately into your electronic medical record. You may view this report before your referring provider. If you have questions, please contact your health care provider. INDICATION: elevated liver function tests COMPARISON: CT 12/29/2019 TECHNIQUE: Real time cowan scale imaging and color Doppler analysis was performed of the right upper quadrant. FINDINGS: The liver measures 17.7 cm. Increased echotexture of the liver noted. No intrahepatic mass. There is a normal appearance of the hepatic IVC and proximal abdominal aorta. There is no evidence of ascites. The gallbladder is of normal size and there is no an echogenic mobile gallstone measuring 2.3 cm with distal acoustic shadowing. The gallbladder wall measures 3.8 mm in thickness. The common bile duct is of normal size and measures 4.7 mm in diameter at the level of the can hepatis. The pancreas is not well visualized. There is no evidence of a stone or hydronephrosis within the right kidney. The right kidney measures 11.5 cm in length. Simple right renal cyst is present measuring 3.1 x 1.6 x 1.9 cm. IMPRESSION: Moderate diffuse hepatic steatosis. Cholelithiasis. Dictated by Lam Menendez MD @ 01/26/2024 10:06:35 PM (Electronically Signed)
== END 2024-01-24 07:02 | disposition home or self-care (01) ==
LOC: US 07:02
PROVIDERS: PCP Physician Assistant Medical; Visit Provider Physician Assistant Medical
DX: R79.89 Other specified abnormal findings of blood chemistry (principal); K76.0 Fatty (change of) liver, not elsewhere classified; D47.1 Chronic myeloproliferative disease
CPT/HCPCS: 76705

== ENCOUNTER 2024-11-20 11:53 | Outpatient (CLI) | payer BC, SELFPAY | END 2024-11-20 11:54 | disposition home or self-care (01) | PROVIDERS: PCP Physician Assistant Medical; Visit Provider Family Medicine | DX: R61 Generalized hyperhidrosis (principal); D75.81 Myelofibrosis; R82.90 Unspecified abnormal findings in urine | CPT/HCPCS: 80053; 84550; 87040; 87086 ==